=== PATIENT | male | born 1955 | race Caucasian/White ===

== ENCOUNTER 2025-04-21 14:52 | Outpatient (CLI) | payer MEDICARE, SELFPAY ==
--- OUTSIDE RECORDS SUMMARY | 2025-04-21 14:57 | XMS_ITS | Clinical Summary ---
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 Name Role Phone Aurora Patterson APRN Primary Care Provider Immunizations Immunization Administration Dates Next Due Influenza, seasonal, injectable 08/15/2012 Pneumococcal Conjugate PCV 13 08/15/2012 Social History Tobacco Use Types Packs/Day Years Used Date Smoking Tobacco: Every Day Alcohol Use Standard Drinks/Week Comments No 0 (1 standard drink = 0.6 oz pur e alcohol) Sex and Gender Information Value Date Recorded Sex Assigned at Not on file Legal Sex Male 6:04 PM EDT Gender Identity Not on file Sexual Orientation Not on file Last Filed Vital Signs Vital Sign Reading Time Taken Comments Blood Pressure - - Pulse - - Temperature - - Respiratory Rate - - Oxygen Saturation - - Inhaled Oxygen Concentration - - Weight 85.3 kg (188 lb 0.1 oz) 03/22/2015 11:15 AM EDT Height 167.6 cm (5' 6 ) 03/22/2015 11:15 AM EDT Body Mass Index 30.35 03/22/2015 11:15 AM EDT Plan of Treatment Not on file Care Teams 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
--- NOTE | 2025-04-21 14:59 | CA_ITS ---
FINAL REPORT TECHNIQUE: Bilateral lower extremity venous duplex was performed with augmentation and compression. CLINICAL HISTORY: EDEMA FINDINGS: Proper flow is seen throughout the deep venous systems bilaterally. There is no evidence of deep venous thrombosis. IMPRESSION: No evidence of deep venous thrombosis. Reviewed, Interpreted and Dictated by Skyler Hernandez MD Transcribed by Tory Montalvo Authenticated and [facility]
== END 2025-04-21 23:59 | disposition home or self-care (01) ==
LOC: RT 14:55
PROVIDERS: PCP Nurse Practitioner Family; Visit Provider Nurse Practitioner Family
DX: M79.89 Other specified soft tissue disorders (principal)
CPT/HCPCS: 93970